=== PATIENT | male | born 1990 | race Caucasian/White ===

== ENCOUNTER 2017-07-16 20:42 | Emergency (ER) | payer SELFPAY ==
[~2017-07-16] VITALS: Ht 175.3 cm; Wt 68.0 kg
[~2017-07-16 20:42] MED LIST: CIPR500T4 PO
[2017-07-16 21:00] VITALS: BP 114/67; PULSE 78; RESP 18; TEMP 98.2
[2017-07-16] MEDS ORDERED: BACT800T5 PO (21:27)
[2017-07-16] MEDS ORDERED: METR-1 PO (21:27)
[2017-07-16] MEDS ORDERED: TETANUS/DIPHTHERIA TOXOID ADULT 0.5 ML VIAL IM ONE (21:30)
[2017-07-16] MEDS ORDERED: SULFAMETHOXAZOLE-TRIMETHOPRIM DS 800-160 MG TAB PO ONE (21:30)
[2017-07-16] MEDS ORDERED: metroNIDAZOLE 500 MG TAB PO ONE (21:30)
--- NOTE | 2017-07-16 21:35 | PD ---
HPI Chief Complaint: Bite or Sting Time Seen by Provider: 21:10 Travel History International Travel<30 days: No Contact w/Intl Traveler<30days: No Traveled to known affect area: No History of Present Illness HPI 27-year-old male presents to the emergency room for evaluation of dog bite to the left ankle that occurred 1 week ago. He had severe pain with ambulation but that has decreased significantly. Patient states over the past 3-4 days his ankle has become increasingly red and swollen. States the swelling seems to decrease but he has also noticed drainage from the area. Patient denies fever, chills, nausea, vomiting, or streaking. No chronic medical conditions or daily medications. Unknown last tetanus. He was bit by his own medium- sized dog that is up-to-date on rabies vaccination. [facility] Past Medical History Medical History: Denies Significant Hx Diminished Hearing: No Genitourinary: Yes (EPIDIDIMIS) Tetanus Vaccination: Unknown Past Surgical History Surgical History: No Previous Surgery Tonsillectomy: Yes Other Surgery: Yes (L THUMB) Social History Alcohol Use: No Tobacco Use: No (ELECTRONIC CIGARETTES) Substance Use: Yes (MARIJUANA) Allergies-Medications (Allergen,Severity, Reaction): Coded Allergies: amoxicillin (Unverified Allergy, Mild, Nausea/Vomiting, 05/23/17) MAKES PT SICK A CHILD Reported Meds & Prescriptions Reported Meds & Active Scripts Active Flagyl (Metronidazole) 500 Mg Tab 500 Mg PO TID 10 Days Bactrim DS (Sulfamethoxazole-Trimethoprim) 800-160 Mg Tab 1 Tab PO BID Review of Systems Except as stated in HPI: all other systems reviewed are Neg Physical Exam Narrative GENERAL: Well-nourished, well-developed male in no acute distress. Afebrile. Ambulatory. SKIN: Focused skin assessment warm/dry. There is an indurated area in the left medial ankle which measures about 5 cm in diameter. There is spontaneous drainage from several deep puncture wounds. There is a zone of inflammation around it but no lymphangitis. HEAD: Normocephalic. EYES: No scleral icterus. No injection or drainage. NECK: Supple, trachea midline. No JVD or lymphadenopathy. CARDIOVASCULAR: Regular rate and rhythm without murmurs, gallops, or rubs. RESPIRATORY: Breath sounds equal bilaterally. No accessory muscle use. GASTROINTESTINAL: Abdomen soft, non-tender, nondistended. MUSCULOSKELETAL: No cyanosis. Moderate 1+ pitting edema to the left ankle. 2+ dorsalis pedis pulse and less than 2 second capillary refill distally. Patient has full range of motion in the ankle. Negative Pritchard test. Strength 5/5 in left lower extremity. Data Data Last Documented VS Vital Signs Date Time Temp Pulse Resp B/P (MAP) Pulse Ox O2 Delivery O2 Flow Rate FiO2 07/16/17 21:00 98.2 78 18 114/67 (83) Orders Orders Metronidazole (Flagyl) (07/16/17 21:30) Sulfamet-Trimeth Ds 800-160 Mg (Bactrim (07/16/17 21:30) MDM Medical Decision Making Medical Screen Exam Complete: Yes Emergency Medical Condition: Yes Medical Record Reviewed: Yes Differential Diagnosis Dog bite infection, cellulitis, abscess Narrative Course 27-year-old male presents to the emergency room for evaluation of a dog bite to his left ankle that occurred 1 week ago. He started noticing increasing redness and swelling 4 days ago. Patient was bit by his own dog that is up-to- date on shots. His tetanus was updated in the emergency room. No systemic signs of infection. He is afebrile and well-appearing in the emergency room. Vital signs stable. Resting comfortably. Ambulatory. Left lower extremity is neurovascularly intact with 2+ dorsalis pedis pulse. Moderate edema and erythema. There are several superficial and one deep puncture wounds to the left medial ankle. The deep wound has spontaneous drainage but no lymphangitis. It was recommended that x-rays be performed to evaluate for foreign body but patient declined. He'll be discharged with prescriptions for Flagyl and Bactrim. Told to follow-up with a primary care physician or return for worsening symptoms. He understands and agrees to plan. Diagnosis Primary Impression: Dog bite of left ankle Qualified Codes: S91.052A - Open bite, left ankle, initial encounter; W54.0XXA - Bitten by dog, initial encounter Referrals: Primary Care Physician Additional Instructions: Rest and drink plenty of fluids. Take Bactrim as directed, until gone. Take Flagyl as directed, until gone. Follow up with a primary care physician. Return to emergency room for worsening symptoms, as discussed. Med/Other Pt SpecificInfo: Prescription(s) given Scripts Metronidazole (Flagyl) 500 Mg Tab 500 MG PO TID for Infection for 10 Days, TAB 0 Refills Prov: Shyam Xie MD 07/16/17 Sulfamethoxazole-Trimethoprim (Bactrim DS) 800-160 Mg Tab 1 TAB PO BID for Infection, #20 TAB 0 Refills Prov: Shyam Xie MD 07/16/17 Disposition: 01 DISCHARGE HOME Condition: Stable Mary Causey Jul 16, 2017 21:35
== END 2017-07-16 22:18 | disposition home or self-care (01) ==
LOC: PHED 20:42
DX: S91.052A Open bite, left ankle, initial encounter (principal); L53.9 Erythematous condition, unspecified; R60.0 Localized edema; Z23 Encounter for immunization; W54.0XXA Bitten by dog, initial encounter
CPT/HCPCS: 90471; 90714